=== PATIENT | male | born 1975 | race Caucasian/White ===

== ENCOUNTER 2017-11-11 02:57 | Emergency (ER) | payer BC ==
[~2017-11-11] VITALS: Ht 180.3 cm; Wt 86.2 kg
[2017-11-11] MEDS ORDERED: LIDOCAINE 1% INJ 50 ML MDV IJ ONE (03:14)
[2017-11-11] MEDS ORDERED: TDAP [DIPH/PERTUSSIS/TET] 0.5 ML VIAL IM ONE ×2 (03:17→04:00)
[2017-11-11] MEDS ORDERED: WATER FOR INJECTION,STERILE 10 ML ONE (03:45)
[2017-11-11] MEDS ORDERED: CEFAZOLIN 1 GM ONE (03:45)
--- NOTE | 2017-11-11 03:52 | NUR ---
WOUND CLEAND, ANTIBIOTIC OINTMENT APPLIED WITH BANDAGE
--- NOTE | 2017-11-11 03:54 | NUR ---
FOREIGN BODY REMOVED BY SANCHEZ GREWAL FROM LEFT HAND 4TH DIGIT
[2017-11-11 03:57] VITALS: BP 136/86
[2017-11-11] MEDS ORDERED: BACI/NEOM/POLY B OINT PKT 1 UDPKT PACKET TP ONE (04:00)
[2017-11-11] MEDS ORDERED: CEFAZOLIN 1 GM VIAL IM ONE (04:00)
[2017-11-11] MEDS ORDERED: LIDOCAINE HCL/PF 1% 30 ML VIAL TP ONE (04:00)
== END 2017-11-11 03:59 | disposition home or self-care (01) ==
LOC: ER 02:57
DX: S69.92XA Unspecified injury of left wrist, hand and finger(s), initial encounter (principal); Z23 Encounter for immunization; W22.8XXA Striking against or struck by other objects, initial encounter; Y93.89 Activity, other specified; Y92.89 Other specified places as the place of occurrence of the external cause; Y99.8 Other external cause status
CPT/HCPCS: 90471; 90715; 96372; 99284; A4606; J0690; J3490 ×2; Z7610